=== PATIENT | male | born 1930 | race Caucasian/White ===

== ENCOUNTER 2018-09-30 17:17 | Inpatient (IN) | payer MEDICARE, MEDICAID ==
[~2018-09-30] VITALS: Ht 180.3 cm; Wt 75.5 kg
[2018-09-30] MEDS ORDERED: LUMIGAN 0.01%2.5 ML EACH EYE (17:23)
[2018-09-30] MEDS ORDERED: LOVASTATIN20 MG PO (17:23)
[2018-09-30] MEDS ORDERED: RENVELA800 MG PO (17:24)
[2018-09-30] MEDS ORDERED: RENVELA0.8 GM PO (17:24)
[2018-09-30] MEDS ORDERED: CELEXA20 MG PO (17:25)
[2018-09-30] MEDS ORDERED: TIMOPTIC 0.5 % O5 ML EACH EYE (17:25)
[2018-09-30] MEDS ORDERED: PROTONIX40 MG PO (17:26)
[2018-09-30] MEDS ORDERED: TRUSOPT 2 % OPT10 ML EACH EYE (17:26)
[2018-09-30 19:59] VITALS: BP 186/89
[2018-09-30 20:36] VITALS: BP 184/83
[2018-10-01 04:30] VITALS: BP 179/83
[2018-10-01 05:53] VITALS: BP 178/86; BMI 22.3
[2018-10-01 09:18] VITALS: BP 195/94
[2018-10-01 13:48] LABS: BASOPHILS 0.2 % (0-2); EOSINOPHILS 0 % (0-7); HEMATOCRIT 37.3 % (42.0-54.0); HEMOGLOBIN 11.9 g/dL (13.5-17.5); IMMATURE GRANULOCYTES 0.2 % (0-5); LYMPHOCYTES 13.6 % (15-50); MCH 32.3 pg (26.0-34.0); MCHC 31.9 g/dL (31.0-37.0); MCV 101.4 fL (80.0-100.0); MEAN PLATELET VOLUME 11.2 fL (7.4-10.4); MONOCYTES 11.2 % (2-11); NEUTROPHILS 74.8 % (40-80); PLATELET COUNT 131 10x3/uL (130-400); RBC 3.68 10x6/uL (4.20-6.10); RDW 12.4 % (11.5-14.5); WBC 8.8 10x3/uL (4.8-10.8)
[2018-10-01 14:12] LABS: ANION GAP 16.6 mmol/L (8-16); BILIRUBIN - TOTAL 0.59 mg/dL (0.2-1.3); CALCIUM 8.8 mg/dL (8.5-10.1); CARBON DIOXIDE 27.2 mmol/L (21.0-32.0); CREATININE - SERUM 6.4 mg/dL (0.6-1.3); POTASSIUM - SERUM 4.8 mmol/L (3.5-5.1); PROTEIN - SERUM 6.2 g/dL (6.4-8.2)
[2018-10-01 14:30] VITALS: BP 183/79
[2018-10-01 20:30] VITALS: BP 163/80
[2018-10-02 04:30] VITALS: BP 189/86
[2018-10-02 05:35] LABS: BASOPHILS 0.1 % (0-2); EOSINOPHILS 0.1 % (0-7); HEMATOCRIT 34.6 % (42.0-54.0); IMMATURE GRANULOCYTES 0.1 % (0-5); MCH 31.4 pg (26.0-34.0); MCHC 31.8 g/dL (31.0-37.0); MEAN PLATELET VOLUME 11.2 fL (7.4-10.4); MONOCYTES 12.7 % (2-11); PLATELET COUNT 131 10x3/uL (130-400); RDW 12.4 % (11.5-14.5); WBC 8.2 10x3/uL (4.8-10.8)
[2018-10-02 05:41] LABS: MCV 98.9 fL (80.0-100.0)
[2018-10-02 06:10] LABS: CALCIUM 8.5 mg/dL (8.5-10.1); CARBON DIOXIDE 28.4 mmol/L (21.0-32.0); POTASSIUM - SERUM 4.4 mmol/L (3.5-5.1)
[2018-10-02 10:14] VITALS: BP 209/92
[2018-10-02 12:50] VITALS: Ht 180.3 cm; Wt 75.5 kg
[2018-10-02 19:55] VITALS: BP 161/62
[2018-10-03 00:11] VITALS: BP 154/74
[2018-10-03 03:50] VITALS: BP 149/63
[2018-10-03 06:52] LABS: ANION GAP 12.7 mmol/L (8-16); CALCIUM 8.5 mg/dL (8.5-10.1); CARBON DIOXIDE 29.6 mmol/L (21.0-32.0); CREATININE - SERUM 5.5 mg/dL (0.6-1.3); PHOSPHOROUS 3.5 mg/dL (2.5-4.9); POTASSIUM - SERUM 4.3 mmol/L (3.5-5.1)
[2018-10-03 07:26] LABS: BASOPHILS 0.1 % (0-2); EOSINOPHILS 0.9 % (0-7); HEMATOCRIT 35.6 % (42.0-54.0); HEMOGLOBIN 11.6 g/dL (13.5-17.5); IMMATURE GRANULOCYTES 0.1 % (0-5); LYMPHOCYTES 19.8 % (15-50); MCH 31.9 pg (26.0-34.0); MCHC 32.6 g/dL (31.0-37.0); MCV 97.8 fL (80.0-100.0); MEAN PLATELET VOLUME 11.6 fL (7.4-10.4); MONOCYTES 8.5 % (2-11); NEUTROPHILS 70.6 % (40-80); PLATELET COUNT 133 10x3/uL (130-400); RBC 3.64 10x6/uL (4.20-6.10); RDW 12.2 % (11.5-14.5); WBC 6.9 10x3/uL (4.8-10.8)
[2018-10-03 09:47] VITALS: BP 158/67
--- NOTE | 2018-10-03 10:23 | EC ---
PATIENT:EDITH NELSON DATE OF SERVICE: 09/30/18 SEX: M MEDICAL RECORD: [id number] DATE OF : [birth year] LOCATION:D.M2 D.214 AGE OF PATIENT: 88 ADMISSION DATE: 09/30/18 REFERRING PHYSICIAN: INTERPRETING PHYSICIAN: JOSH SANTOS MD ECHOCARDIOGRAM REPORT ECHO CHARGES 4 ECHO COMPLETE Date: 10/01/18 CLINICAL DIAGNOSIS: CARDIOMEGALLY ECHOCARDIOGRAPHIC MEASUREMENTS (adult normal given) AC root (d.<3.7cm) 3.8 cm LV Septum d (<1.2 cm> 1.0 cm Valve Excursion 1.7 cm LV Septum (systole) 1.5 cm Left Atria (s.<4.0cm> 3.3 cm LVPW d(<1.2cm) 1.1 cm RV (d.<2.3cm) 3.7 cm LVPW (sytole) 1.2 cm LV diastole(<5.6CM) 5.6 cm MV E-F(>70mm/sec) cm LV systole 4.6 cm LVOT Diameter 2.0 cm MV exc.(>10mm) cm Est.ejection fraction (50-75%) % DOPPLER: LVIT cm/sec A 73 cm/sec E 87 cm/sec LA cm/sec RVSP 44.7 mmHg LVOT 128 cm/sec AOP1/2T m/s Asc. Ao 209 cm/sec RVOT 68 cm/sec RA cm/sec PA 75 cm/sec AV Gradient Peak 17.4 mmHg AV Mean 9.2 mmHg AV Area 2.1 cm MV Gradient Peak 4.2 mmHg MV Mean 2.0 mmHg MV Area cm COMMENTS: Rubber Trimmer: Mikel [facility] Package Car Driver: 1 Dr. Santos TAPE# PACS Pericardial Effusion N DATE OF SERVICE: FINDINGS: 1. Left ventricular chamber size is within normal limits. Left ventricular systolic function is mildly depressed. Overall ejection fraction 40%. 2. Left atrium, right atrium, and right ventricle chamber sizes are upper limits of normal. 3. Valvular structures have normal structure and motion. 4. Doppler interrogation reveals tzri-ku-hvrddgsd mitral regurgitation, mild tricuspid regurgitation, no other valvular insufficiency or stenosis. Pulmonary ECHOCARDIOGRAM REPORT [id number] EDITH NELSON systolic pressure is estimated at 44 mmHg. 5. No evidence of pericardial effusion or left ventricular thrombus. TRANSINT:[id number] Voice Confirmation ID: [id number] DOCUMENT ID: [id number] JOSH SANTOS MD at 1023 CC: [id number] DICTATION DATE: 10/02/18 1145 PLACEMENT SECRETARY: 10/02/18 1307 ADM IN [facility] [address] [place] [address]
[2018-10-03 20:41] VITALS: BP 158/80
[2018-10-04 00:38] VITALS: BP 185/84
[2018-10-04 04:34] VITALS: BP 181/86
[2018-10-04 04:57] LABS: BASOPHILS 0.2 % (0-2); EOSINOPHILS 2.1 % (0-7); HEMATOCRIT 34.9 % (42.0-54.0); HEMOGLOBIN 11.4 g/dL (13.5-17.5); IMMATURE GRANULOCYTES 0.2 % (0-5); LYMPHOCYTES 20.1 % (15-50); MCH 31.4 pg (26.0-34.0); MCHC 32.7 g/dL (31.0-37.0); MCV 96.1 fL (80.0-100.0); MEAN PLATELET VOLUME 11.6 fL (7.4-10.4); MONOCYTES 8.9 % (2-11); NEUTROPHILS 68.5 % (40-80); PLATELET COUNT 147 10x3/uL (130-400); RBC 3.63 10x6/uL (4.20-6.10); RDW 12.1 % (11.5-14.5); WBC 6.1 10x3/uL (4.8-10.8)
[2018-10-04 05:04] LABS: ANION GAP 11.7 mmol/L (8-16); CALCIUM 8.1 mg/dL (8.5-10.1); CARBON DIOXIDE 29.3 mmol/L (21.0-32.0); CREATININE - SERUM 6.3 mg/dL (0.6-1.3)
[2018-10-04 08:19] VITALS: BP 167/74
[2018-10-04 16:41] VITALS: BP 142/77
--- NOTE | 2018-10-04 17:11 | MORECARE ---
CASE MANAGEMENT DISCHARGE SUMMARY PATIENT: EDITH NELSON UNIT: [id number] ADM DATE: 09/30/18 AGE: 88 : [birth year] SEX: M ROOM/BED: D.2140 AUTHOR: SELIN ASHBY PHYSICIAN: REFERRING PHYSICIAN: CECIL JUAREZ MD DATE OF SERVICE: 10/04/18 Discharge Plan Patient Name: EDITH NELSON [facility] [facility] 1930 Planned Disposition: Home Anticipated Discharge Date: Discharge Date: Expected LOS: Initial Reviewer: [email or web address] Initial Review Date: 09/30/2018 Generated: 10/04/18 6:11 pm DCPIA - Discharge Planning Initial Assessment Updated by [email or web address]: Isaac Ventura on 10/04/18 5:07 pm * Is the patient Alert and Oriented? Yes * How many steps to enter\exit or inside your home? * PCP DR. ANGEL IN [place] * Pharmacy [facility] IN [place] * Preadmission Environment Home with Family * ADLs Independent * Equipment Walker * Other Equipment NO MEDICAL EQUIPMENT PROVIDER PREFERENCE * List name and contact numbers for known caregivers / representatives who currently or will assist patient after discharge: CONOR ANNA, SIGNIFICANT OTHER, * Verbal permission to speak to the caregivers and representatives has been obtained from the patient. Yes * Community resources currently utilized Other Private Duty Care * Please name any agencies selected above. [facility] 1000, MEDICAL TRANSPORT BUS RECORD LIBRARIAN, TTS, AREA AGENCY ON [place], 6 HOURS ON TUE/, NEEDED SAT. * Additional services required to return to the preadmission environment? No * Can the patient safely return to the preadmission environment? Yes * Has this patient been hospitalized within the prior 30 days at any hospital? No Patient Name: EDITH NELSON Page [phone] at 1711 All edits/amendments must be made on the electronic document DICTATION DATE: 10/04/181709 ENGINEERING TECHNICAL ANALYST: KOKI 10/04/181709 RPT#: [id number] DC DATE: STATUS: ADM IN [facility] [address] [place] [address] END OF REPORT
--- NOTE | 2018-10-04 17:21 | MORECARE ---
CASE MANAGEMENT DISCHARGE SUMMARY PATIENT: EDITH NELSON UNIT: [id number] ADM DATE: 09/30/18 AGE: 88 : [birth year] SEX: M ROOM/BED: D.2140 AUTHOR: SYMONE,DOC PHYSICIAN: REFERRING PHYSICIAN: CECIL JUAREZ MD DATE OF SERVICE: 10/04/18 Discharge Plan Patient Name: EDITH NELSON Facility: [facility]:[place] : 1930 Planned Disposition: Home Anticipated Discharge Date: Discharge Date: Expected LOS: Initial Reviewer: [email or web address] Initial Review Date: 09/30/2018 Generated: 10/04/18 6:21 pm Comments DCP- Discharge Planning Updated by [id number]: Isaac Ventura on 10/04/18 4:[address] Patient Name: EDITH NELSON Admission Status: ER Accout number: [id number] Admission Date: 09-30-2018 : 1930 Admission Diagnosis:SHORTNESS OF BREATH Attending: CECIL JUAREZ Current LOS: 4 Anticipated DC Date: Planned Disposition: Home Primary Insurance: MEDICARE A & B Discharge Planning Comments: CM RECEIVED ORDER TO CLAIRFY CODE STATUS. CM MET WITH PT IN ROOM TO DISCUSS DISCHARGE PLANNING AND NEEDS. PT VERY HARD OF HEARING, EVEN WITH HEARING AIDE IN. PT REPORTS LIVING AT HOME INDEPENDENTLY WITH SIGNIFICANT OTHER. PT HAS WALKER AND NO MEDICAL EQUIPMENT PROVIDER PREFERENCE. PT HAS SOFTWARE DEVELOPMENT LEADER WITH [facility] ON AGING, TUESDAY AND TUESDAY, 6 HOURS, TUESDAY NEEDED. PT HAS OUTPATIENT DIALYSIS IN [facility], 1000 AM, MEDICAL TRANSPORT BUS FOR TRANSPORT TO AND FROM DIALYSIS. CM DISCUSSED AVAILABILITY OF HOME HEALTH, REHAB SERVICES AND MEDICAL EQUIPMENT. PT DENIES DISCHARGE NEEDS, AT THIS TIME, REPORTS FAMILY WILL PICK HIM UP FOR DISCHARGE HOME. PT STATES HIS NIECE PATRICIO IS HERE AT HOSPITAL TODAY AND GOT HIS HEARING AIDE WORKING. CM DISCUSSED CODE STATUS, CPR, VENT AND DRUG THERAPY TO ASSIST IN LIFE SAVING PROCEDURES. PT STATES "YES". CM ASKED WHAT PT WAS SAYING YES TO. PT STATES HE WANTS "EVERYTHING YOU CAN DO TO SAVE ME." CM PROVIDED HOSPITAL DIVERSIFIED CROPS I FARMWORKER AND CM CONTACT INFORMATION. PT WANTS "EVERYTHING" DONE TO SAVE HIM. PT PLANS TO DISCHARGE HOME WITH SIGNIFICANT OTHER. PT DOES NOT ANTICIPATE DISCHARGE NEEDS AT THIS TIME. CM TO FOLLOW AND ASSIST NEEDED. Diplomatic Courier: Isaac Ventura DCPIA - Discharge Planning Initial Assessment Updated by [id number]: Isaac Ventura on 10/04/18 5:07 pm * Is the patient Alert and Oriented? Yes * How many steps to enter\\exit or inside your home? * PCP DR. ANGEL IN [place] * Pharmacy [facility] [place] * Preadmission Environment Home with Family * ADLs Independent * Equipment Walker * Other Equipment NO MEDICAL EQUIPMENT PROVIDER PREFERENCE * List name and contact numbers for known caregivers / representatives who currently or will assist patient after discharge: CONOR CASTILLO, SIGNIFICANT OTHER, * Verbal permission to speak to the caregivers and representatives has been obtained from the patient. Yes * Community resources currently utilized Other Private Duty Care * Please name any agencies selected above. OUTPATIENT DIALYSIS, [facility], MWF, 1000, MEDICAL TRANSPORT BUS DESIGN ENGINEERING MANAGER, TTS, AREA AGENCY ON [place], 6 HOURS ON TUE/, NEEDED SAT. * Additional services required to return to the preadmission environment? No * Can the patient safely return to the preadmission environment? Yes * Has this patient been hospitalized within the prior 30 days at any hospital? No Last DP export: 10/04/18 4:11 p Patient Name: EDITH NELSON Page [id number] at 1721 All edits/amendments must be made on the electronic document DICTATION DATE: 10/04/181719 PUPPET ENGINEER: KOKI 10/04/181719 RPT#: [id number] DC DATE: STATUS: ADM IN [facility] [address] [place] [address] END OF REPORT
[2018-10-04 20:41] VITALS: BP 151/67
[2018-10-05] VITALS: BP 153/60
[2018-10-05 03:10] LABS: IMMUNOGLOBULIN E 257 IU/mL (0-100)
[2018-10-05 04:46] LABS: BASOPHILS 0.2 % (0-2); EOSINOPHILS 1.6 % (0-7); HEMATOCRIT 33.7 % (42.0-54.0); HEMOGLOBIN 11.1 g/dL (13.5-17.5); IMMATURE GRANULOCYTES 0.2 % (0-5); LYMPHOCYTES 20.1 % (15-50); MCH 31.6 pg (26.0-34.0); MCHC 32.9 g/dL (31.0-37.0); MEAN PLATELET VOLUME 11.3 fL (7.4-10.4); MONOCYTES 8.3 % (2-11); NEUTROPHILS 69.6 % (40-80); PLATELET COUNT 151 10x3/uL (130-400); RBC 3.51 10x6/uL (4.20-6.10); RDW 12.2 % (11.5-14.5); WBC 6.1 10x3/uL (4.8-10.8)
[2018-10-05 04:55] VITALS: BP 159/80
[2018-10-05 05:08] LABS: ANION GAP 9.1 mmol/L (8-16); CARBON DIOXIDE 31.6 mmol/L (21.0-32.0); POTASSIUM - SERUM 3.7 mmol/L (3.5-5.1)
[2018-10-05 08:20] LABS: HEPATITIS C ANTIBODY <0.1 S/CO RAT (0.0-0.9)
[2018-10-05 08:23] VITALS: BP 157/73
[2018-10-05 12:42] VITALS: BP 143/55
[2018-10-05 15:30] VITALS: BP 161/71
[2018-10-05 20:00] VITALS: BP 149/63
[2018-10-06] VITALS: BP 150/55
[2018-10-06 07:50] LABS: ANION GAP 9.5 mmol/L (8-16); CALCIUM 8.3 mg/dL (8.5-10.1); POTASSIUM - SERUM 3.5 mmol/L (3.5-5.1)
[2018-10-06 07:51] LABS: BASOPHILS 0.1 % (0-2); IMMATURE GRANULOCYTES 0.3 % (0-5); LYMPHOCYTES 16.1 % (15-50); MCHC 33.3 g/dL (31.0-37.0); MCV 95.9 fL (80.0-100.0); MEAN PLATELET VOLUME 11.7 fL (7.4-10.4); MONOCYTES 10.6 % (2-11); NEUTROPHILS 70.9 % (40-80); PLATELET COUNT 167 10x3/uL (130-400); RBC 3.44 10x6/uL (4.20-6.10)
[2018-10-06 08:08] LABS: CREATININE - SERUM 6.5 mg/dL (0.6-1.3)
[2018-10-06 08:14] VITALS: BP 132/64
[2018-10-06 09:19] LABS: HEPATITIS BE ANTIGEN Positive (Negative)
[2018-10-06 15:04] VITALS: BP 122/68
[2018-10-06 21:18] VITALS: BP 162/78
[2018-10-07 00:28] VITALS: BP 162/78
[2018-10-07 01:42] VITALS: BP 150/66
[2018-10-07 05:16] LABS: HEPATITIS BE ANTIBODY Negative (Negative)
[2018-10-07 05:22] VITALS: BP 154/69
[2018-10-07 07:41] LABS: BASOPHILS 0.2 % (0-2); EOSINOPHILS 3.3 % (0-7); HEMATOCRIT 33.1 % (42.0-54.0); HEMOGLOBIN 10.9 g/dL (13.5-17.5); IMMATURE GRANULOCYTES 0.5 % (0-5); LYMPHOCYTES 20.3 % (15-50); MCH 31.8 pg (26.0-34.0); MCHC 32.9 g/dL (31.0-37.0); MCV 96.5 fL (80.0-100.0); MEAN PLATELET VOLUME 11.1 fL (7.4-10.4); MONOCYTES 12.6 % (2-11); NEUTROPHILS 63.1 % (40-80); PLATELET COUNT 157 10x3/uL (130-400); RBC 3.43 10x6/uL (4.20-6.10); RDW 12.2 % (11.5-14.5); WBC 5.7 10x3/uL (4.8-10.8)
[2018-10-07 07:50] VITALS: BP 159/68
[2018-10-07 07:56] LABS: ANION GAP 9.5 mmol/L (8-16); CALCIUM 8.6 mg/dL (8.5-10.1); CREATININE - SERUM 5.4 mg/dL (0.6-1.3); POTASSIUM - SERUM 3.5 mmol/L (3.5-5.1)
[2018-10-07 13:43] VITALS: BP 138/61
[2018-10-07 20:30] VITALS: BP 152/71
[2018-10-08 00:30] VITALS: BP 164/72
[2018-10-08 04:30] VITALS: BP 160/57
[2018-10-08 06:25] LABS: BASOPHILS 0.1 % (0-2); EOSINOPHILS 2.3 % (0-7); HEMOGLOBIN 10.7 g/dL (13.5-17.5); IMMATURE GRANULOCYTES 0.7 % (0-5); LYMPHOCYTES 22.3 % (15-50); MCH 31.4 pg (26.0-34.0); MCHC 32.4 g/dL (31.0-37.0); MCV 96.8 fL (80.0-100.0); MEAN PLATELET VOLUME 11.3 fL (7.4-10.4); MONOCYTES 10.9 % (2-11); NEUTROPHILS 63.7 % (40-80); PLATELET COUNT 164 10x3/uL (130-400); RBC 3.41 10x6/uL (4.20-6.10); RDW 12.2 % (11.5-14.5); WBC 7.1 10x3/uL (4.8-10.8)
[2018-10-08 06:50] LABS: ANION GAP 11.6 mmol/L (8-16); CALCIUM 8.3 mg/dL (8.5-10.1); CREATININE - SERUM 6.8 mg/dL (0.6-1.3); POTASSIUM - SERUM 3.6 mmol/L (3.5-5.1)
[2018-10-08 07:25] VITALS: BP 151/74
[2018-10-08 21:41] VITALS: BP 188/81
[2018-10-09 00:43] VITALS: BP 175/77
[2018-10-09 04:17] VITALS: BP 174/75
[2018-10-09 05:55] LABS: BASOPHILS 0.1 % (0-2); EOSINOPHILS 2.7 % (0-7); HEMATOCRIT 32.5 % (42.0-54.0); HEMOGLOBIN 10.7 g/dL (13.5-17.5); IMMATURE GRANULOCYTES 0.9 % (0-5); LYMPHOCYTES 17.9 % (15-50); MCH 31.7 pg (26.0-34.0); MCHC 32.9 g/dL (31.0-37.0); MCV 96.2 fL (80.0-100.0); MEAN PLATELET VOLUME 10.9 fL (7.4-10.4); MONOCYTES 9.8 % (2-11); NEUTROPHILS 68.6 % (40-80); PLATELET COUNT 169 10x3/uL (130-400); RBC 3.38 10x6/uL (4.20-6.10); RDW 12.4 % (11.5-14.5); WBC 7.5 10x3/uL (4.8-10.8)
[2018-10-09 06:13] LABS: ANION GAP 13.9 mmol/L (8-16); CALCIUM 8.3 mg/dL (8.5-10.1); CARBON DIOXIDE 26.8 mmol/L (21.0-32.0); CREATININE - SERUM 7.8 mg/dL (0.6-1.3); POTASSIUM - SERUM 3.7 mmol/L (3.5-5.1)
[2018-10-09 07:45] VITALS: BP 164/70
[2018-10-09 17:30] VITALS: BP 154/68
[2018-10-09 20:51] VITALS: BP 167/77
[2018-10-10 00:02] VITALS: BP 176/78
[2018-10-10 04:42] VITALS: BP 157/71
[2018-10-10 06:23] LABS: BASOPHILS 0.1 % (0-2); EOSINOPHILS 3.5 % (0-7); HEMATOCRIT 33.3 % (42.0-54.0); LYMPHOCYTES 19.3 % (15-50); MCH 31.4 pg (26.0-34.0); MCV 95.1 fL (80.0-100.0); MEAN PLATELET VOLUME 10.6 fL (7.4-10.4); MONOCYTES 11.4 % (2-11); NEUTROPHILS 64.7 % (40-80); PLATELET COUNT 158 10x3/uL (130-400); RDW 12.2 % (11.5-14.5); WBC 6.9 10x3/uL (4.8-10.8)
[2018-10-10 06:41] LABS: CALCIUM 8.4 mg/dL (8.5-10.1); CARBON DIOXIDE 29.4 mmol/L (21.0-32.0); CREATININE - SERUM 5.9 mg/dL (0.6-1.3); POTASSIUM - SERUM 3.4 mmol/L (3.5-5.1)
[2018-10-10 08:15] VITALS: BP 171/76
--- NOTE | 2018-10-10 10:32 | MORECARE ---
CASE MANAGEMENT DISCHARGE SUMMARY PATIENT: EDITH NELSON UNIT: [id number] ADM DATE: 09/30/18 AGE: 88 : [birth year] SEX: M ROOM/BED: D.2140 AUTHOR: SYMONE,DOC PHYSICIAN: REFERRING PHYSICIAN: CECIL JUAREZ MD DATE OF SERVICE: 10/10/18 Discharge Plan Patient Name: EDITH NELSON Facility: [facility]:[place] : 1930 Planned Disposition: Half-Way Facility Anticipated Discharge Date: 10/10/18 Discharge Date: Expected LOS: 10 Initial Reviewer: [email or web address] Initial Review Date: 09/30/2018 Generated: 10/10/18 11:32 am Comments DCP- Discharge Planning Updated by [id number]: Isaac Ventura on 10/04/18 4:[address] Patient Name: EDITH NELSON Admission Status: ER Accout number: [id number] Admission Date: 09-30-2018 : 1930 Admission Diagnosis:SHORTNESS OF BREATH Attending: CECIL JUAREZ Current LOS: 4 Anticipated DC Date: Planned Disposition: Home Primary Insurance: MEDICARE A & B Discharge Planning Comments: CM RECEIVED ORDER TO CLAIRFY CODE STATUS. CM MET WITH PT IN ROOM TO DISCUSS DISCHARGE PLANNING AND NEEDS. PT VERY HARD OF HEARING, EVEN WITH HEARING AIDE IN. PT REPORTS LIVING AT HOME INDEPENDENTLY WITH SIGNIFICANT OTHER. PT HAS WALKER AND NO MEDICAL EQUIPMENT PROVIDER PREFERENCE. PT HAS CLEANING ASSOCIATE WITH [facility] ON AGING, TUESDAY AND TUESDAY, 6 HOURS, TUESDAY NEEDED. PT HAS OUTPATIENT DIALYSIS IN [facility], 1000 AM, MEDICAL TRANSPORT BUS FOR TRANSPORT TO AND FROM DIALYSIS. CM DISCUSSED AVAILABILITY OF HOME HEALTH, REHAB SERVICES AND MEDICAL EQUIPMENT. PT DENIES DISCHARGE NEEDS, AT THIS TIME, REPORTS FAMILY WILL PICK HIM UP FOR DISCHARGE HOME. PT STATES HIS NIECE PATRICIO IS HERE AT HOSPITAL TODAY AND GOT HIS HEARING AIDE WORKING. CM DISCUSSED CODE STATUS, CPR, VENT AND DRUG THERAPY TO ASSIST IN LIFE SAVING PROCEDURES. PT STATES "YES". CM ASKED WHAT PT WAS SAYING YES TO. PT STATES HE WANTS "EVERYTHING YOU CAN DO TO SAVE ME." CM PROVIDED HOSPITAL BACKUP SAWYER AND CM CONTACT INFORMATION. PT WANTS "EVERYTHING" DONE TO SAVE HIM. PT PLANS TO DISCHARGE HOME WITH SIGNIFICANT OTHER. PT DOES NOT ANTICIPATE DISCHARGE NEEDS AT THIS TIME. CM TO FOLLOW AND ASSIST NEEDED. Burial Needs Salesperson: Isaac Ventura DCPIA - Discharge Planning Initial Assessment Updated by [email or web address]: Isaac Ventura on 10/10/18 10:32 am * Is the patient Alert and Oriented? Yes * How many steps to enter\\exit or inside your home? * PCP DR. ANGEL IN [place] * Pharmacy [facility] IN [place] * Preadmission Environment Home with Family * ADLs Independent * Equipment Walker * Other Equipment NO MEDICAL EQUIPMENT PROVIDER PREFERENCE * List name and contact numbers for known caregivers / representatives who currently or will assist patient after discharge: CONOR CASTILLO, SIGNIFICANT OTHER, * Verbal permission to speak to the caregivers and representatives has been obtained from the patient. Yes * Community resources currently utilized Other Private Duty Care * Please name any agencies selected above. OUTPATIENT DIALYSIS, [place], MWF, 1000, MEDICAL TRANSPORT BUS VACUUM SYSTEM TESTER, TTS, AREA AGENCY ON AG[place], 6 HOURS ON TUE/, NEEDED SAT. * Additional services required to return to the preadmission environment? No * Can the patient safely return to the preadmission environment? Yes * Has this patient been hospitalized within the prior 30 days at any hospital? No Last DP export: 10/04/18 4:21 p Patient Name: EDITH NELSON Page [phone] at 1032 All edits/amendments must be made on the electronic document DICTATION DATE: 10/10/18 103 SOLAR PV INSTALLER: KOKI 10/10/18 1032 RPT#: [id number] DC DATE: STATUS: ADM IN [facility] [address] [place] [address] END OF REPORT
--- NOTE | 2018-10-10 10:40 | MORECARE ---
CASE MANAGEMENT DISCHARGE SUMMARY PATIENT: EDITH NELSON UNIT: [id number] ADM DATE: 09/30/18 AGE: 88 : [birth year] SEX: M ROOM/BED: D.2140 AUTHOR: SYMONE,DOC PHYSICIAN: REFERRING PHYSICIAN: CECIL JUAREZ MD DATE OF SERVICE: 10/10/18 Discharge Plan Patient Name: EDITH NELSON Facility: [facility]:[place] : 1930 Planned Disposition: Shelter Facility Anticipated Discharge Date: 10/10/18 Discharge Date: Expected LOS: 10 Initial Reviewer: [email or web address] Initial Review Date: 09/30/2018 Generated: 10/10/18 11:40 am Comments DCP- Discharge Planning Updated by [email or web address]: Isaac Ventura on 10/04/18 4:[address] Patient Name: EDITH NELSON Admission Status: ER Accout number: [id number] Admission Date: 09-30-2018 : 1930 Admission Diagnosis:SHORTNESS OF BREATH Attending: CECIL JUAREZ Current LOS: 4 Anticipated DC Date: Planned Disposition: Home Primary Insurance: MEDICARE A & B Discharge Planning Comments: CM RECEIVED ORDER TO CLAIRFY CODE STATUS. CM MET WITH PT IN ROOM TO DISCUSS DISCHARGE PLANNING AND NEEDS. PT VERY HARD OF HEARING, EVEN WITH HEARING AIDE IN. PT REPORTS LIVING AT HOME INDEPENDENTLY WITH SIGNIFICANT OTHER. PT HAS WALKER AND NO MEDICAL EQUIPMENT PROVIDER PREFERENCE. PT HAS PRACTICAL MINISTRIES PROFESSOR WITH [facility] ON AGING, TUESDAY AND TUESDAY, 6 HOURS, TUESDAY NEEDED. PT HAS OUTPATIENT DIALYSIS IN [facility], 1000 AM, MEDICAL TRANSPORT BUS FOR TRANSPORT TO AND FROM DIALYSIS. CM DISCUSSED AVAILABILITY OF HOME HEALTH, REHAB SERVICES AND MEDICAL EQUIPMENT. PT DENIES DISCHARGE NEEDS, AT THIS TIME, REPORTS FAMILY WILL PICK HIM UP FOR DISCHARGE HOME. PT STATES HIS NIECE PATRICIO IS HERE AT HOSPITAL TODAY AND GOT HIS HEARING AIDE WORKING. CM DISCUSSED CODE STATUS, CPR, VENT AND DRUG THERAPY TO ASSIST IN LIFE SAVING PROCEDURES. PT STATES "YES". CM ASKED WHAT PT WAS SAYING YES TO. PT STATES HE WANTS "EVERYTHING YOU CAN DO TO SAVE ME." CM PROVIDED HOSPITAL PIPELINE DISPATCH OPERATOR AND CM CONTACT INFORMATION. PT WANTS "EVERYTHING" DONE TO SAVE HIM. PT PLANS TO DISCHARGE HOME WITH SIGNIFICANT OTHER. PT DOES NOT ANTICIPATE DISCHARGE NEEDS AT THIS TIME. CM TO FOLLOW AND ASSIST NEEDED. String Cutter: Isaac Ventura DCPIA - Discharge Planning Initial Assessment Updated by [email or web address]: Isaac Ventura on 10/10/18 10:32 am * Is the patient Alert and Oriented? Yes * How many steps to enter\\exit or inside your home? * PCP DR. ANGEL IN [place] * Pharmacy [facility] IN [place] * Preadmission Environment Home with Family * ADLs Independent * Equipment Walker * Other Equipment NO MEDICAL EQUIPMENT PROVIDER PREFERENCE * List name and contact numbers for known caregivers / representatives who currently or will assist patient after discharge: CONOR CASTILLO, SIGNIFICANT OTHER, * Verbal permission to speak to the caregivers and representatives has been obtained from the patient. Yes * Community resources currently utilized Other Private Duty Care * Please name any agencies selected above. OUTPATIENT DIALYSIS, [place], MWF, 1000, MEDICAL TRANSPORT BUS SAWSMITH, TTS, AREA AGENCY ON AGING, 6 HOURS ON TUE/, NEEDED SAT. * Additional services required to return to the preadmission environment? No * Can the patient safely return to the preadmission environment? Yes * Has this patient been hospitalized within the prior 30 days at any hospital? No External Providers External Provider: [facility] [place] Next Contact Date: 10/10/2018 Service Request Date: Service Type: Resolution: Reviewer: Comments: Coverage Notice Reviewer: [email or web address] Eran Ventura Notice Issued Date-Time: 10/10/2018 9:45 Notice Type: Patient Choice Letter Notice Delivered To: Patient Relationship to Patient: Television Cabinet Finisher Name: Delivery Method: HAND - Hand Delivered Tisha Days: Prior Verbal Notification: Recipient Understood Notice: Yes Recipient Signature: Yes Med Rec Note Co-signed by Attending: Coverage Notice Comment: [facility] Reviewer: [id number] Eran Ventura Notice Issued Date-Time: 10/10/2018 9:25 Notice Type: IM Discharge Notice Notice Delivered To: Patient Relationship to Patient: Television Cabinet Finisher Name: Delivery Method: HAND - Hand Delivered Tisha Days: Prior Verbal Notification: Recipient Understood Notice: Yes Recipient Signature: Yes Med Rec Note Co-signed by Attending: Coverage Notice Comment: Last DP export: 10/10/18 9:32 a Patient Name: EDITH NELSON Page [phone] at 1040 All edits/amendments must be made on the electronic document DICTATION DATE: 10/10/18 1040 DOCUMENT CONTROL COORDINATOR: KOKI 10/10/18 1040 RPT#: [id number] DC DATE: STATUS: ADM IN [facility] [address] [place] [address] END OF REPORT
--- NOTE | 2018-10-10 11:01 | MORECARE ---
CASE MANAGEMENT DISCHARGE SUMMARY PATIENT: EDITH NELSON UNIT: [id number] ADM DATE: 09/30/18 AGE: 88 : [birth year] SEX: M ROOM/BED: D.2140 AUTHOR: SYMONE,DOC PHYSICIAN: REFERRING PHYSICIAN: CECIL JUAREZ MD DATE OF SERVICE: 10/10/18 Discharge Plan Patient Name: EDITH NELSON Facility: [facility]:[place] : 1930 Planned Disposition: Mcfp Facility Anticipated Discharge Date: 10/10/18 Discharge Date: Expected LOS: 10 Initial Reviewer: [id number] Initial Review Date: 09/30/2018 Generated: 10/10/18 12:01 pm Comments DCP- Discharge Planning Updated by [email or web address]: Isaac Ventura on 10/10/18 9:[address] Patient Name: EDITH NELSON Encounter No: [id number] : 1930 Primary Insurance: MEDICARE A & B Anticipated DC Date: 10-10-2018 Planned Disposition: Mcfp Facility External Planned Provider: [facility], MEDICARE REHAB BED DCP follow-up note: CM RECEIVED DISCHARGE ORDER, MET WITH PT IN ROOM WHO CONTINUES TO REPORT PLAN TO GO HOME TODAY, DENIES DISCHARGE NEEDS, WANTS CM TO CALL HIS , CONOR, AND HAVE HIM PICKED UP. IMPORTANT MESSAGE FROM [employer] PROVIDED AND EXPLAINED. CM CALLED PT'S SIGNIFICANT OTHER, CONRO, , CONOR REPORTS HER DAUGHTER IS TAKING CARE OF HER AND CANNOT CARE FOR BOTH SHE AND PT AT HOME RIGHT NOW. CONOR REPORTS PT WILL HAVE TO BE STRONGER TO COME HOME. CONOR WANTS PT TO GO TO REHAB AT [facility]. FAMILY HAS NOT TALKED TO PT ABOUT HIM NOT COMING HOME AND HAVE BEEN MEANING TO TALK TO "SOMEBODY" ABOUT IT. PT'S PHYSICAL ADDRESS AT HOME IS [address] [place] [address]. CM NOTIFIED PT WHO INFORMED CM TO TELL CONOR TO COME AND GET HIM. CM TOLD CONOR PERDOMO SAID SHE CANNOT AND PT NEEDS REHAB. CM NOTIFED PT WHO IS WILLING FOR REHAB AT [facility]. CHOICE SIGNED. CONOR ASKED CM TO CALL PT'S HALLE MACHADO; PT INFORMED CM THAT IT IS OK TO TALK TO HIS DAUGHTER AND SHARE INFORMATION REGARDING HIS TREATMENT AND DISCHARGE PLANNING. CM CALLED JOSAFAT AT [phone], NOTIFIED JOSAFAT OF ABOVE. CM CALLED [facility], , LEFT MESSAGE FOR HAKAN NOTIFYING OF REHAB REFERRAL. CM FAXED REFERRAL TO [facility], . CM WAITING ADMISSION DETERMINATION FROM [facility]. Isaac Ventura, CASE MANAGEMENT DCP- Discharge Planning Updated by [email or web address]: Isaac Ventura on 10/04/18 4:[address] Patient Name: EDITH NELSON Admission Status: ER Accout number: [id number] Admission Date: 09-30-2018 : 1930 Admission Diagnosis:SHORTNESS OF BREATH Attending: CECIL JUAREZ Current LOS: 4 Anticipated DC Date: Planned Disposition: Home Primary Insurance: MEDICARE A & B Discharge Planning Comments: CM RECEIVED ORDER TO CLAIRFY CODE STATUS. CM MET WITH PT IN ROOM TO DISCUSS DISCHARGE PLANNING AND NEEDS. PT VERY HARD OF HEARING, EVEN WITH HEARING AIDE IN. PT REPORTS LIVING AT HOME INDEPENDENTLY WITH SIGNIFICANT OTHER. PT HAS WALKER AND NO MEDICAL EQUIPMENT PROVIDER PREFERENCE. PT HAS HEAVY MOBILE EQUIPMENT REPAIRER WITH [facility] ON AGING, TUESDAY AND TUESDAY, 6 HOURS, TUESDAY NEEDED. PT HAS OUTPATIENT DIALYSIS IN [facility], 1000 AM, MEDICAL TRANSPORT BUS FOR TRANSPORT TO AND FROM DIALYSIS. CM DISCUSSED AVAILABILITY OF HOME HEALTH, REHAB SERVICES AND MEDICAL EQUIPMENT. PT DENIES DISCHARGE NEEDS, AT THIS TIME, REPORTS FAMILY WILL PICK HIM UP FOR DISCHARGE HOME. PT STATES HIS NIECE PATRICIO IS HERE AT HOSPITAL TODAY AND GOT HIS HEARING AIDE WORKING. CM DISCUSSED CODE STATUS, CPR, VENT AND DRUG THERAPY TO ASSIST IN LIFE SAVING PROCEDURES. PT STATES "YES". CM ASKED WHAT PT WAS SAYING YES TO. PT STATES HE WANTS "EVERYTHING YOU CAN DO TO SAVE ME." CM PROVIDED HOSPITAL TECHNOLOGY ADMINISTRATOR AND CM CONTACT INFORMATION. PT WANTS "EVERYTHING" DONE TO SAVE HIM. PT PLANS TO DISCHARGE HOME WITH SIGNIFICANT OTHER. PT DOES NOT ANTICIPATE DISCHARGE NEEDS AT THIS TIME. CM TO FOLLOW AND ASSIST NEEDED. Lead Assistant Manager: Isaac Ventura DCPIA - Discharge Planning Initial Assessment Updated by [email or web address]: Isaac Ventura on 10/10/18 10:32 am * Is the patient Alert and Oriented? Yes * How many steps to enter\\exit or inside your home? * PCP DR. ANGEL IN [place] * Pharmacy [facility] IN [place] * Preadmission Environment Home with Family * ADLs Independent * Equipment Walker * Other Equipment NO MEDICAL EQUIPMENT PROVIDER PREFERENCE * List name and contact numbers for known caregivers / representatives who currently or will assist patient after discharge: CONOR CASTILLO, SIGNIFICANT OTHER, * Verbal permission to speak to the caregivers and representatives has been obtained from the patient. Yes * Community resources currently utilized Other Private Duty Care * Please name any agencies selected above. OUTPATIENT DIALYSIS, [place], MWF, 1000, MEDICAL TRANSPORT BUS SENIOR SUPPLIER QUALITY ENGINEER, TTS, AREA AGENCY ON AG[place], 6 HOURS ON TUE/, NEEDED SAT. * Additional services required to return to the preadmission environment? No * Can the patient safely return to the preadmission environment? Yes * Has this patient been hospitalized within the prior 30 days at any hospital? No Coverage Notice Reviewer: NIA Ventura Notice Issued Date-Time: 10/10/2018 9:45 Notice Type: Patient Choice Letter Notice Delivered To: Patient Relationship to Patient: Qc Scientist Name: Delivery Method: HAND - Hand Delivered Tisha Days: Prior Verbal Notification: Recipient Understood Notice: Yes Recipient Signature: Yes Med Rec Note Co-signed by Attending: Coverage Notice Comment: [facility] Reviewer: NIA Ventura Notice Issued Date-Time: 10/10/2018 9:25 Notice Type: IM Discharge Notice Notice Delivered To: Patient Relationship to Patient: Qc Scientist Name: Delivery Method: HAND - Hand Delivered Tisha Days: Prior Verbal Notification: Recipient Understood Notice: Yes Recipient Signature: Yes Med Rec Note Co-signed by Attending: Coverage Notice Comment: Last DP export: 10/10/18 9:40 a Patient Name: EDITH NELSON Page 07129 at 1101 All edits/amendments must be made on the electronic document DICTATION DATE: 10/10/18 1100 CAMERA STORAGE CLERK: KOKI 10/10/18 1100 RPT#: [id number] DC DATE: STATUS: ADM IN [facility] [address] [facility] [place] [address] END OF REPORT
--- NOTE | 2018-10-10 15:24 | MORECARE ---
CASE MANAGEMENT DISCHARGE SUMMARY PATIENT: EDITH NELSON UNIT: [id number] ADM DATE: 09/30/18 AGE: 88 : [birth year] SEX: M ROOM/BED: D.2140 AUTHOR: SYMONE,DOC PHYSICIAN: REFERRING PHYSICIAN: CECIL JUAREZ MD DATE OF SERVICE: 10/10/18 Discharge Plan Patient Name: EDITH NELSON Facility: [facility]:[place] : 1930 Planned Disposition: Retirement Facility Anticipated Discharge Date: 10/11/18 Discharge Date: Expected LOS: 11 Initial Reviewer: NIA Initial Review Date: 09/30/2018 Generated: 10/10/18 4:24 pm Comments DCP- Discharge Planning Updated by [email or web address]: Isaac Ventura on 10/10/18 2:[address] Patient Name: EDITH NELSON Encounter No: [id number] : 1930 Primary Insurance: MEDICARE A & B Anticipated DC Date: 10-11-2018 Planned Disposition: Retirement Facility External Planned Provider: [facility] DCP follow-up note: MIKE RECEIVED CALL FROM VEANGELINA OF [facility], SHE RECEIVED REFERRAL FOR REHAB FROM [facility], ADVISED REQUESTED SKILLED NURSING HAD NO AVAILABLE REHAB BED. EVANGELINA HAS CONTACTED FAMILY WHO PROVIDED PERMISSION FOR REHAB AT [facility]. EVANGELINA HAD QUESTION IF LAUREN SCREENING WAS REQUIRED DUE TO PT HAVING BEEN ON XANEX AND RESTORIL WHILE IN HOSPITAL. MIKE REVIEWED CHART, CALLED [facility] AND WAS NOTIFED THAT A SCREENING WOULD BE REQUIRED IF PT HAS HISTORY OF PSYCHIATRIC ILLNESS OR TREATMENT AND OR HAVING ANXIETY DISORDER IN COMBINATION WITH DEPRESSION. MIKE CALLED EVANGELINA AT [facility], , WHO ADVISED SHE RECEIVED THE SAME ANSWER, TALKED TO FAMILY WHO INFORMED HER THAT PT HAS NOT HISTORY OF PSYCHIATRIC ILLNESS OTHER THAN DEPRESSION. MIKE CONFIRMED THIS WITH PT AND UPDATED PT ON REHAB PROGRESS. MIKE RECEIVED CALL FROM EVANGELINA OF [facility] WHO INFORMED CM THAT PHARMACEUTICAL BOTANIST WILL COME TOMORROW TO HOSPITAL TO SCREEN PT FOR REHAB ADMISSION. MIKE WAITING ADMISSION DETERMINATION FROM [facility] IN [place]. Isaac [place], CASE MANAGEMENT DCP- Discharge Planning Updated by [id number]: Isaac Ventura on 10/10/18 9:[address] Patient Name: EDITH NELSON Encounter No: [id number] : 1930 Primary Insurance: MEDICARE A & B Anticipated DC Date: 10-10-2018 Planned Disposition: Retirement Facility External Planned Provider: [facility], MEDICARE REHAB BED DCP follow-up note: CM RECEIVED DISCHARGE ORDER, MET WITH PT IN ROOM WHO CONTINUES TO REPORT PLAN TO GO HOME TODAY, DENIES DISCHARGE NEEDS, WANTS CM TO CALL HIS , CONOR, AND HAVE HIM PICKED UP. IMPORTANT MESSAGE FROM [employer] PROVIDED AND EXPLAINED. CM CALLED PT'S SIGNIFICANT OTHER, CONOR, , CONOR REPORTS HER DAUGHTER IS TAKING CARE OF HER AND CANNOT CARE FOR BOTH SHE AND PT AT HOME RIGHT NOW. CONOR REPORTS PT WILL HAVE TO BE STRONGER TO COME HOME. CONOR WANTS PT TO GO TO REHAB AT [facility]. FAMILY HAS NOT TALKED TO PT ABOUT HIM NOT COMING HOME AND HAVE BEEN MEANING TO TALK TO "SOMEBODY" ABOUT IT. PT'S PHYSICAL ADDRESS AT HOME IS [address] [place] [address]. CM NOTIFIED PT WHO INFORMED CM TO TELL CONOR TO COME AND GET HIM. CM TOLD CONOR PERDOMO SAID SHE CANNOT AND PT NEEDS REHAB. CM NOTIFED PT WHO IS WILLING FOR REHAB AT [place]. CHOICE SIGNED. CONOR ASKED CM TO CALL PT'S DAUGHER JOSAFAT MACHADO; PT INFORMED CM THAT IT IS OK TO TALK TO HIS DAUGHTER AND SHARE INFORMATION REGARDING HIS TREATMENT AND DISCHARGE PLANNING. CM CALLED JOSAFAT AT [phone], NOTIFIED JOSAFAT OF ABOVE. CM CALLED [facility], , LEFT MESSAGE FOR HAKAN NOTIFYING OF REHAB REFERRAL. CM [facility], . CM WAITING ADMISSION DETERMINATION [facility]. EMORY [place] DCP- Discharge Planning Updated by [id number]: Isaac Ventura on 10/04/18 4:[address] Patient Name: EDITH NELSON Admission Status: ER Accout number: [id number] Admission Date: 09-30-2018 : 1930 Admission Diagnosis:SHORTNESS OF BREATH Attending: CECIL JUAREZ Current LOS: 4 Anticipated DC Date: Planned Disposition: Home Primary Insurance: MEDICARE A & B Discharge Planning Comments: CM RECEIVED ORDER TO CLAIRFY CODE STATUS. CM MET WITH PT IN ROOM TO DISCUSS DISCHARGE PLANNING AND NEEDS. PT VERY HARD OF HEARING, EVEN WITH HEARING AIDE IN. PT REPORTS LIVING AT HOME INDEPENDENTLY WITH SIGNIFICANT OTHER. PT HAS WALKER AND NO MEDICAL EQUIPMENT PROVIDER PREFERENCE. 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 PT HAS OUTPATIENT DIALYSIS IN [facility], 1000 AM, MEDICAL TRANSPORT BUS FOR TRANSPORT TO AND FROM DIALYSIS. CM DISCUSSED AVAILABILITY OF HOME HEALTH, REHAB SERVICES AND MEDICAL EQUIPMENT. PT DENIES DISCHARGE NEEDS, AT THIS TIME, REPORTS FAMILY WILL PICK HIM UP FOR DISCHARGE HOME. PT STATES HIS NIECE PATRICIO IS HERE AT HOSPITAL TODAY AND GOT HIS HEARING AIDE WORKING. CM DISCUSSED CODE STATUS, CPR, VENT AND DRUG THERAPY TO ASSIST IN LIFE SAVING PROCEDURES. PT STATES "YES". CM ASKED WHAT PT WAS SAYING YES TO. PT STATES HE WANTS "EVERYTHING YOU CAN DO TO SAVE ME." CM PROVIDED HOSPITAL SPECIFICATION WRITER AND CM CONTACT INFORMATION. PT WANTS "EVERYTHING" DONE TO SAVE HIM. PT PLANS TO DISCHARGE HOME WITH SIGNIFICANT OTHER. PT DOES NOT ANTICIPATE DISCHARGE NEEDS AT THIS TIME. CM TO FOLLOW AND ASSIST NEEDED. Qualitative Field Project Manager: Isaac Ventura DCPIA - Discharge Planning Initial Assessment Updated by [id number]: Isaac Ventura on 10/10/18 10:32 am * Is the patient Alert and Oriented? Yes * How many steps to enter\\exit or inside your home? * PCP DR. ANGEL IN [place] * Pharmacy [facility] IN [place] * Preadmission Environment Home with Family * ADLs Independent * Equipment Walker * Other Equipment NO MEDICAL EQUIPMENT PROVIDER PREFERENCE * List name and contact numbers for known caregivers / representatives who currently or will assist patient after discharge: CONOR ANNA, SIGNIFICANT OTHER, * Verbal permission to speak to the caregivers and representatives has been obtained from the patient. Yes * Community resources currently utilized Other Private Duty Care * Please name any agencies selected above. OUTPATIENT DIALYSIS, [place], F, 1000, MEDICAL TRANSPORT BUS THERAPEUTIC DIETITIAN, TTS, [facility] [address], 6 HOURS ON TUE/THUR, NEEDED SAT. * Additional services required to return to the preadmission environment? No * Can the patient safely return to the preadmission environment? Yes * Has this patient been hospitalized within the prior 30 days at any hospital? No External Providers External Provider: [facility] Next Contact Date: 10/11/2018 Service Request Date: Service Type: Resolution: Reviewer: Comments: [facility] Next Contact Date: 10/10/2018 Service Request Date: Service Type: Resolution: Reviewer: Comments: Coverage Notice Reviewer: [id number] Ventura Notice Issued Date-Time: 10/10/2018 9:45 Notice Type: Patient Choice Letter Notice Delivered To: Patient Relationship to Patient: Cover Cutter Machine Name: Delivery Method: HAND - Hand Delivered Tisha Days: Prior Verbal Notification: Recipient Understood Notice: Yes Recipient Signature: Yes Med Rec Note Co-signed by Attending: Coverage Notice Comment: [facility] Reviewer: NIA Ventura Notice Issued Date-Time: 10/10/2018 9:25 Notice Type: IM Discharge Notice Notice Delivered To: Patient Relationship to Patient: Cover Cutter Machine Name: Delivery Method: HAND - Hand Delivered Tisha Days: Prior Verbal Notification: Recipient Understood Notice: Yes Recipient Signature: Yes Med Rec Note Co-signed by Attending: Coverage Notice Comment: Last DP export: 10/10/18 10:01 a Patient Name: EDITH NELSON Page 99199 at 1524 All edits/amendments must be made on the electronic document DICTATION DATE: 10/10/18 152 BACTERIOLOGIST PHARMACEUTICAL: KOKI 10/10/18 152 RPT#: [id number] DC DATE: STATUS: ADM IN [facility] [address] [place] [address] END OF REPORT
[2018-10-10 21:03] VITALS: BP 160/68
[2018-10-11 00:31] VITALS: BP 142/71
[2018-10-11 06:12] LABS: BASOPHILS 0.1 % (0-2); EOSINOPHILS 2.2 % (0-7); HEMATOCRIT 30.7 % (42.0-54.0); HEMOGLOBIN 10.3 g/dL (13.5-17.5); IMMATURE GRANULOCYTES 0.7 % (0-5); MCH 31.7 pg (26.0-34.0); MCHC 33.6 g/dL (31.0-37.0); MCV 94.5 fL (80.0-100.0); MONOCYTES 12.9 % (2-11); NEUTROPHILS 62.1 % (40-80); PLATELET COUNT 154 10x3/uL (130-400); RBC 3.25 10x6/uL (4.20-6.10); RDW 12.2 % (11.5-14.5); WBC 6.7 10x3/uL (4.8-10.8)
[2018-10-11 06:17] VITALS: BP 145/59
[2018-10-11 06:28] LABS: ANION GAP 12.8 mmol/L (8-16); CALCIUM 8.3 mg/dL (8.5-10.1); CARBON DIOXIDE 27.8 mmol/L (21.0-32.0); POTASSIUM - SERUM 3.6 mmol/L (3.5-5.1)
[2018-10-11 06:29] LABS: CREATININE - SERUM 7.4 mg/dL (0.6-1.3)
[2018-10-11 08:35] VITALS: BP 155/57
--- NOTE | 2018-10-11 11:02 | MORECARE ---
CASE MANAGEMENT DISCHARGE SUMMARY PATIENT: EDITH NELSON UNIT: [id number] ADM DATE: 09/30/18 AGE: 88 : [birth year] SEX: M ROOM/BED: D.2140 AUTHOR: SYMONE,DOC PHYSICIAN: REFERRING PHYSICIAN: CECIL JUAREZ MD DATE OF SERVICE: 10/11/18 Discharge Plan Patient Name: EDITH NELSON Facility: [facility]:[place] : 1930 Planned Disposition: Long Term Facility Anticipated Discharge Date: 10/11/18 Discharge Date: Expected LOS: 11 Initial Reviewer: [id number] Initial Review Date: 09/30/2018 Generated: 10/11/18 12:01 pm Comments DCP- Discharge Planning Updated by [email or web address]: Isaac Ventura on 10/11/18 9:[address] Patient Name: EDITH NELSON Encounter No: [id number] : 1930 Primary Insurance: MEDICARE A & B Anticipated DC Date: 10-11-2018 Planned Disposition: Long Term Facility External Planned Provider: [facility], MEDICARE REHAB BED DCP follow-up note: CM RECEIVEC ALL FROM [facility], THEY WILL ACCEPT FOR REHAB TODAY, VAN TO DICTATING TRANSCRIBING MACHINE SERVICER AT 1PM TODAY, PT HAS BEEN NOTIFIED AND IS IN AGREEMENT WITH DISCHARGE TO REHAB AT [facility]. CM CALLED PT'S LASHELLER JOSAFAT MACHADO, , WHO IS IN AGREEMENT ALSO, SHE WILL NOTIFY PT'S SIGNIFICANT OTHER, CONOR. ANIME ARTIST NURSE NOTIFIED. NURSE REPORT TO BE CALLED TO [facility] AT [phone]. LONG-TERM VAN, EQUIPPED WITH [employer], WILL DICTATING TRANSCRIBING MACHINE SERVICER PT AT 1PM TODAY. EMORY [place] DCP- Discharge Planning Updated by [id number]: Isaac Ventura on 10/10/18 2:[address] Patient Name: EDITH NELSON Encounter No: [id number] : 1930 Primary Insurance: MEDICARE A & B Anticipated DC Date: 10-11-2018 Planned Disposition: Long Term Facility External Planned Provider: [facility], MEDICARE REHAB BED DCP follow-up note: MIKE RECEIVED CALL FROM EVANGELINA OF [facility], SHE RECEIVED REFERRAL FOR REHAB FROM [facility], ADVISED REQUESTED LONG-TERM HAD NO AVAILABLE REHAB BED. EVANGELINA HAS CONTACTED FAMILY WHO PROVIDED PERMISSION FOR REHAB AT [facility]. EVANGELINA HAD QUESTION IF LAUREN SCREENING WAS REQUIRED DUE TO PT HAVING BEEN ON XANEX AND RESTORIL WHILE IN HOSPITAL. MIKE REVIEWED CHART, CALLED [facility] AND WAS NOTIFED THAT A SCREENING WOULD BE REQUIRED IF PT HAS HISTORY OF PSYCHIATRIC ILLNESS OR TREATMENT AND OR HAVING ANXIETY DISORDER IN COMBINATION WITH DEPRESSION. CM CALLED EVANGELINA AT [facility], , WHO ADVISED SHE RECEIVED THE SAME ANSWER, TALKED TO FAMILY WHO INFORMED HER THAT PT HAS NOT HISTORY OF PSYCHIATRIC ILLNESS OTHER THAN DEPRESSION. CM CONFIRMED THIS WITH PT AND UPDATED PT ON REHAB PROGRESS. CM RECEIVED CALL FROM EVANGELINA OF [facility] WHO INFORMED CM THAT WHITE GOODS APPLIANCE TECH WILL COME TOMORROW TO HOSPITAL TO SCREEN PT FOR REHAB ADMISSION. MIKE WAITING ADMISSION DETERMINATION FROM [facility] IN [place]. Isaac [place], CASE MANAGEMENT DCP- Discharge Planning Updated by [id number]: Isaac Ventura on 10/10/18 9:[address] Patient Name: EDITH NELSON Encounter No: [id number] : 1930 Primary Insurance: MEDICARE A & B Anticipated DC Date: 10-10-2018 Planned Disposition: Long Term Facility External Planned Provider: [facility], MEDICARE REHAB BED DCP follow-up note: CM RECEIVED DISCHARGE ORDER, MET WITH PT IN ROOM WHO CONTINUES TO REPORT PLAN TO GO HOME TODAY, DENIES DISCHARGE NEEDS, WANTS CM TO CALL HIS , CONOR, AND HAVE HIM PICKED UP. IMPORTANT MESSAGE FROM [employer] PROVIDED AND EXPLAINED. CM CALLED PT'S SIGNIFICANT OTHER, CONOR, , CONOR REPORTS HER DAUGHTER IS TAKING CARE OF HER AND CANNOT CARE FOR BOTH SHE AND PT AT HOME RIGHT NOW. CONOR REPORTS PT WILL HAVE TO BE STRONGER TO COME HOME. CONOR WANTS PT TO GO TO REHAB AT [facility]. FAMILY HAS NOT TALKED TO PT ABOUT HIM NOT COMING HOME AND HAVE BEEN MEANING TO TALK TO "SOMEBODY" ABOUT IT. PT'S PHYSICAL ADDRESS AT HOME IS [address] [place] [address]. CM NOTIFIED PT WHO INFORMED CM TO TELL CONOR TO COME AND GET HIM. CM TOLD CONOR, CONOR SAID SHE CANNOT AND PT NEEDS REHAB. CM NOTIFED PT WHO IS WILLING FOR REHAB AT [place]. CHOICE SIGNED. CONOR ASKED CM TO CALL PT'S DAUGHER JOSAFAT JEANNETTE; PT INFORMED CM THAT IT IS OK TO TALK TO HIS DAUGHTER AND SHARE INFORMATION REGARDING HIS TREATMENT AND DISCHARGE PLANNING. CM CALLED JOSAFAT AT [phone], NOTIFIED JOSAFAT OF ABOVE. CM CALLED [facility], , LEFT MESSAGE FOR HAKAN NOTIFYING OF REHAB REFERRAL. CM FAXED REFERRAL TO [facility], . CM WAITING ADMISSION DETERMINATION FROM [facility]. Isaac Ventura, CASE MANAGEMENT DCP- Discharge Planning Updated by [id number]: Isaac Ventura on 10/04/18 4:[address] Patient Name: EDITH NELSON Admission Status: ER Accout number: [id number] Admission Date: 09-30-2018 : 1930 Admission Diagnosis:SHORTNESS OF BREATH Attending: CECIL JUAREZ Current LOS: 4 Anticipated DC Date: Planned Disposition: Home Primary Insurance: MEDICARE A & B Discharge Planning Comments: CM RECEIVED ORDER TO CLAIRFY CODE STATUS. CM MET WITH PT IN ROOM TO DISCUSS DISCHARGE PLANNING AND NEEDS. PT VERY HARD OF HEARING, EVEN WITH HEARING AIDE IN. PT REPORTS LIVING AT HOME INDEPENDENTLY WITH SIGNIFICANT OTHER. PT HAS WALKER AND NO MEDICAL EQUIPMENT PROVIDER PREFERENCE. 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 PT HAS OUTPATIENT DIALYSIS IN [place], [facility], 1000 AM, MEDICAL TRANSPORT BUS FOR TRANSPORT TO AND FROM DIALYSIS. CM DISCUSSED AVAILABILITY OF HOME HEALTH, REHAB SERVICES AND MEDICAL EQUIPMENT. PT DENIES DISCHARGE NEEDS, AT THIS TIME, REPORTS FAMILY WILL PICK HIM UP FOR DISCHARGE HOME. PT STATES HIS NIECE PATRICIO IS HERE AT HOSPITAL TODAY AND GOT HIS HEARING AIDE WORKING. CM DISCUSSED CODE STATUS, CPR, VENT AND DRUG THERAPY TO ASSIST IN LIFE SAVING PROCEDURES. PT STATES "YES". CM ASKED WHAT PT WAS SAYING YES TO. PT STATES HE WANTS "EVERYTHING YOU CAN DO TO SAVE ME." CM PROVIDED HOSPITAL CHARGE GANG WEIGHER AND CM CONTACT INFORMATION. PT WANTS "EVERYTHING" DONE TO SAVE HIM. PT PLANS TO DISCHARGE HOME WITH SIGNIFICANT OTHER. PT DOES NOT ANTICIPATE DISCHARGE NEEDS AT THIS TIME. CM TO FOLLOW AND ASSIST NEEDED. Top Inventory Control Executive: Isaac Ventura DCPIA - Discharge Planning Initial Assessment Updated by NIA: Isaac Ventura on 10/10/18 10:32 am * Is the patient Alert and Oriented? Yes * How many steps to enter\\exit or inside your home? * PCP DR[facility] ANGEL IN [place] * Pharmacy [facility] IN [place] * Preadmission Environment Home with Family * ADLs Independent * Equipment Walker * Other Equipment NO MEDICAL EQUIPMENT PROVIDER PREFERENCE * List name and contact numbers for known caregivers / representatives who currently or will assist patient after discharge: CONOR CASTILLO, SIGNIFICANT OTHER, * Verbal permission to speak to the caregivers and representatives has been obtained from the patient. Yes * Community resources currently utilized Other Private Duty Care * Please name any agencies selected above. OUTPATIENT DIALYSIS, [place], MWF, 1000, MEDICAL TRANSPORT BUS BENZOL STILL OPERATOR, [place], [facility] [address], 6 HOURS ON TUE/, NEEDED SAT. * Additional services required to return to the preadmission environment? No * Can the patient safely return to the preadmission environment? Yes * Has this patient been hospitalized within the prior 30 days at any hospital? No Coverage Notice Reviewer: NIA Ventura Notice Issued Date-Time: 10/10/2018 9:45 Notice Type: Patient Choice Letter Notice Delivered To: Patient Relationship to Patient: Business Solutions Architect Name: Delivery Method: HAND - Hand Delivered Tisha Days: Prior Verbal Notification: Recipient Understood Notice: Yes Recipient Signature: Yes Med Rec Note Co-signed by Attending: Coverage Notice Comment: [facility] Reviewer: [id number] Eran Ventura Notice Issued Date-Time: 10/10/2018 9:25 Notice Type: IM Discharge Notice Notice Delivered To: Patient Relationship to Patient: Business Solutions Architect Name: Delivery Method: HAND - Hand Delivered Tisha Days: Prior Verbal Notification: Recipient Understood Notice: Yes Recipient Signature: Yes Med Rec Note Co-signed by Attending: Coverage Notice Comment: Last DP export: 10/10/18 2:24 p Patient Name: EDITH NELSON Page 00625 at 1102 All edits/amendments must be made on the electronic document DICTATION DATE: 10/11/[address] PATROL COMMANDER: KOKI 10/11/18 110 RPT#: [id number] DC DATE: STATUS: ADM IN [facility] [address] [place] [address] END OF REPORT
== END 2018-10-11 15:05 | DRG 177 ==
LOC: D.ER 17:17 → D.M2 18:32 → D.EDHOLD 18:32 → D.M2 20:45
PROVIDERS: Internal Medicine Nephrology; Internal Medicine Pulmonary Disease; ADMIT Internal Medicine Nephrology
DX: J69.0 Pneumonitis due to inhalation of food and vomit (principal); N18.6 End stage renal disease; J96.01 Acute respiratory failure with hypoxia; I50.33 Acute on chronic diastolic (congestive) heart failure; J44.0 Chronic obstructive pulmonary disease with (acute) lower respiratory infection; I13.2 Hypertensive heart and chronic kidney disease with heart failure and with stage 5 chronic kidney disease, or end stage renal disease; J44.1 Chronic obstructive pulmonary disease with (acute) exacerbation; J12.1 Respiratory syncytial virus pneumonia; E11.22 Type 2 diabetes mellitus with diabetic chronic kidney disease; Z99.2 Dependence on renal dialysis; I48.91 Unspecified atrial fibrillation; E78.5 Hyperlipidemia, unspecified; K21.9 Gastro-esophageal reflux disease without esophagitis; F32.9 Major depressive disorder, single episode, unspecified; D53.9 Nutritional anemia, unspecified; H54.8 Legal blindness, as defined in USA; N40.0 Benign prostatic hyperplasia without lower urinary tract symptoms; M19.90 Unspecified osteoarthritis, unspecified site; D63.1 Anemia in chronic kidney disease; Z87.891 Personal history of nicotine dependence